=== PATIENT | female | born 1975 | race Caucasian/White ===

== ENCOUNTER 2020-03-03 16:16 | Emergency (ER) | payer OTHER ==
[~2020-03-03] VITALS: Ht 170.2 cm; Wt 86.2 kg
[2020-03-03] MEDS ORDERED: KEPPRA1000 MG PO (16:27)
[2020-03-03] MEDS ORDERED: ZONEGRAN100 MG PO (16:28)
[2020-03-03] MEDS ORDERED: OMEPRAZOLE40 MG PO (16:29)
[2020-03-03] MEDS ORDERED: FLEXERIL PO (16:29)
[2020-03-03] MEDS ORDERED: CYCLOBENZAPRINE5 MG PO (18:30)
[2020-03-03] MEDS ORDERED: CLARITIN10 M3 PO (18:30)
[2020-03-03] MEDS ORDERED: NABUMETONE 750750 M1 PO (18:30)
[2020-03-03 18:39] VITALS: BP 107/68
== END 2020-03-03 18:39 | disposition home or self-care (01) ==
LOC: M.ERS 16:16
DX: G43.909 Migraine, unspecified, not intractable, without status migrainosus (principal); J30.2 Other seasonal allergic rhinitis; Z91.041 Radiographic dye allergy status; Z88.2 Allergy status to sulfonamides; Z88.8 Allergy status to other drugs, medicaments and biological substances